=== PATIENT | female | born 2000 | race Caucasian/White ===

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

== ENCOUNTER 2021-02-15 10:00 | Emergency (ER) | payer MEDICAID ==
[2021-02-15 10:35] VITALS: BP 129/76
[2021-02-15 11:13] LABS: CLARITY,URINE CLEAR (Clear); COLOR,URINE YELLOW (Yellow); GLUCOSE, URINE NEGATIVE (Neg); KETONES,URINE NEGATIVE (Neg); LEUKOCYTE ESTERASE ,URINE NEGATIVE (Neg); NITRITES, URINE NEGATIVE (Neg); OCCULT BLOOD,URINE NEGATIVE (Neg); PROTEIN,URINE NEGATIVE (Neg); UROBILINOGEN,URINE 0.2 E.U/dL (0.2-1.0)
[2021-02-15 11:14] LABS: UA COLLECTION TYPE CLN CATCH MIDSTREAM; URINE HCG NEGATIVE (NEG)
== END 2021-02-15 12:33 | disposition home or self-care (01) ==
LOC: ER 10:04
DX: S33.5XXA Sprain of ligaments of lumbar spine, initial encounter (principal); Z88.1 Allergy status to other antibiotic agents; Z79.899 Other long term (current) drug therapy; Z56.0 Unemployment, unspecified; Z98.890 Other specified postprocedural states; X50.1XXA Overexertion from prolonged static or awkward postures, initial encounter; Y93.89 Activity, other specified; Y92.89 Other specified places as the place of occurrence of the external cause; Y99.8 Other external cause status
CPT/HCPCS: 81003; 81025; 99283

== ENCOUNTER 2024-01-01 11:28 | Emergency (ER) | payer BC, MEDICAID ==
[~2024-01-01] VITALS: Ht 157.5 cm; Wt 54.5 kg
[2024-01-01 11:31] VITALS: BP 126/70; PULSE 63; RESP 14; TEMP 97.7; O2SAT 100
[2024-01-01] MEDS: ketorolac trometh. 30mg/ml inj. IM ONE (12:47)
== END 2024-01-01 13:19 | disposition home or self-care (01) ==
LOC: ER 11:28
DX: M25.562 Pain in left knee (principal); Z88.1 Allergy status to other antibiotic agents; Z79.899 Other long term (current) drug therapy
CPT/HCPCS: 73564; 96372; 99283; J1885